=== PATIENT | female | born 1995 ===

== ENCOUNTER 2017-05-21 19:14 | Observation (INO) | payer OTHER ==
[~2017-05-21] VITALS: Ht 162.6 cm; Wt 72.6 kg
[2017-05-21] MEDS ORDERED: PRENATAL-U CAPS1 CAP PO (19:27)
[2017-05-21] MEDS ORDERED: CALCIUM + VITA1 EAC4 PO (22:42)
== END 2017-05-22 01:05 ==
LOC: EDMED 19:14 → LDR 21:10 → EMR2 21:10 → LDR 21:16
PROVIDERS: ADMIT Obstetrics & Gynecology
DX: O9A.212 Injury, poisoning and certain other consequences of external causes complicating pregnancy, second trimester (principal); V43.52XA Car driver injured in collision with other type car in traffic accident, initial encounter; O99.89 Other specified diseases and conditions complicating pregnancy, childbirth and the puerperium; M54.2 Cervicalgia; M54.5 Low back pain; Z3A.26 26 weeks gestation of pregnancy; Z79.899 Other long term (current) drug therapy